=== PATIENT | female | born 1970 | race Caucasian/White ===

== ENCOUNTER 2016-10-31 22:59 | Emergency (ER) | payer OTHER ==
[~2016-10-31] VITALS: Ht 152.4 cm; Wt 67.0 kg
[2016-10-31 23:15] VITALS: BP 169/79; PULSE 105; RESP 18; TEMP 98.3; O2SAT 99
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
[2016-10-31] MEDS ORDERED: FLUO40CA PO (23:42)
[2016-10-31] MEDS ORDERED: LIDO1CRE31 TOPICAL (23:46)
[2016-10-31] MEDS ORDERED: ASPI81CH CHEW (23:47)
[2016-10-31] MEDS ORDERED: FLUO20CA12 PO (23:48)
[2016-10-31] MEDS ORDERED: CARV3.12 PO (23:49)
[2016-10-31] MEDS ORDERED: IBUP-232 (23:51)
[2016-10-31] MEDS ORDERED: LORA5SOL16 (23:51)
[2016-10-31] MEDS ORDERED: AMLO5TAB2 PO (23:55)
[2016-10-31] MEDS ORDERED: OMEP20TA PO (23:55)
[2016-10-31] MEDS ORDERED: LEVO112T2 PO (23:55)
[2016-10-31] MEDS ORDERED: CYCL5TAB PO (23:55)
[2016-10-31] MEDS ORDERED: PRAZ1CAP PO (23:55)
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
[2016-10-31] MEDS ORDERED: MULT-11 (23:58)
[2016-10-31] MEDS ORDERED: GUAISYP7 PO (23:58)
--- NOTE | 2016-10-31 23:58 | RADRPT ---
EXAM DATE/TIME: 10/31/2016 23:41 [facility] COMPARISON: No previous studies available for comparison. INDICATIONS : Left elbow pain. MEDICAL HISTORY : None. SURGICAL HISTORY : None. ENCOUNTER: Initial ACUITY: 1 day PAIN SCORE: 4/10 LOCATION: Left elbow. FINDINGS: Multiple view examination of the left elbow demonstrates no soft tissue swelling, joint effusion, or fracture. The osseous structures are in normal alignment. Bony mineralization is normal. CONCLUSION: Negative trauma study. Sage Carrera MD on October 31, 2016 at 23:56 Board Certified Radiologist. This report was verified electronically.
--- NOTE | 2016-10-31 23:58 | RADRPT ---
EXAM DATE/TIME: 10/31/2016 23:40 [facility] COMPARISON: No previous studies available for comparison. INDICATIONS : Left hand pain. MEDICAL HISTORY : None. SURGICAL HISTORY : None. ENCOUNTER: Initial ACUITY: 1 day PAIN SCORE: 6/10 LOCATION: Left hand. FINDINGS: Three view examination of the left hand demonstrates no acute fracture or malalignment. There is soft tissue swelling over the dorsum of the hand.. The carpal bones appear intact. The interphalangeal and metacarpophalangeal joints are intact. Bony mineralization is normal. CONCLUSION: Soft tissue swelling over the dorsum of the hand with no acute fracture or malalignme nt. Sage Carrera MD on October 31, 2016 at 23:55 Board Certified Radiologist. This report was verified electronically.
[2016-11-01 00:09] LABS: ANION GAP 9 MEQ/L (5-15); AST (GOT) 26 U/L (15-37); BICARBONATE 23.6 MEQ/L (21.0-32.0); BLOOD UREA NITROGEN 16 MG/DL (7-18); CHLORIDE 104 MEQ/L (98-107); GLOMERULAR FILTRATION RATE 67 ML/MIN (>89); POTASSIUM 3.7 MEQ/L (3.5-5.1); SODIUM (NA) 137 MEQ/L (136-145)
[2016-11-01 00:10] LABS: ALT (GPT) 53 U/L (10-53)
[2016-11-01 00:14] LABS: ALKALINE PHOSPHATASE 98 U/L (45-117); TOTAL BILIRUBIN ADULT 0.5 MG/DL (0.2-1.0)
[2016-11-01 01:40] LABS: BACTERIA, URINE RARE /hpf; BLOOD, URINE NEG (NEG); GLUCOSE,URINE NEG (NEG); HYALINE CAST, URINE 5 /lpf (RARE); KETONE, URINE NEG (NEG); MUCUS URINE FEW /lpf (OCC); NITRITE,URINE NEG (NEG); SQUAMOUS EPITHELIAL CELL URINE 2 /hpf (0-5); URINE COLOR YELLOW (YELLW/STRAW)
[2016-11-01 01:42] LABS: COMMENT (UR) CULTURE INDICATED; CULTURE IF INDICATED CULTURE INDICATED
[2016-11-01 01:46] LABS: AMPHETAMINE, URINE NEG (NEG); BARBITURATES, URINE NEG (NEG); COCAINE, URINE NEG (NEG)
[2016-11-01] MEDS ORDERED: SULFAMETHOXAZOLE-TRIMETHOPRIM DS 800-160 MG TAB PO ONE (02:30)
[2016-11-01] MEDS ORDERED: LORazepam 1 MG TAB PO ONE (02:45)
[2016-11-01 04:26] VITALS: BP 152/71; PULSE 97; RESP 18
[2016-11-01 06:25] LABS: AUTOMATED NEUTROPHIL # 5.5 TH/MM3 (1.8-7.7); BASOPHIL % 0.5 % (0.0-2.0); EOSINOPHIL % 0.5 % (0.0-4.0); HEMATOCRIT 35.7 % (35.0-46.0); HEMO FLAGS DIFF FINAL; LYMPH % 22.8 % (9.0-44.0); LYMPHOCYTE # 1.8 TH/MM3 (1.0-4.8); MEAN CELL VOLUME 82.3 FL (80.0-100.0); MEAN CORPUSCULAR HEMOGLOBIN 27.5 PG (27.0-34.0); MEAN CORPUSCULAR HGB CONC 33.4 % (32.0-36.0); MONO % 6.9 % (0.0-8.0); NEUT % 69.3 % (16.0-70.0); PLATELET COUNT 189 TH/MM3 (150-450); RED BLOOD COUNT 4.33 MIL/MM3 (4.00-5.30); RED CELL DISTRIBUTION WIDTH 14.3 % (11.6-17.2); WHITE BLOOD COUNT 7.9 TH/MM3 (4.0-11.0)
[2016-11-01 10:47] VITALS: BP 138/72; PULSE 88; RESP 14; O2SAT 99
[2016-11-01 15:14] VITALS: BP 175/84; PULSE 92; RESP 18; O2SAT 98
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
== END 2016-11-01 18:22 | disposition home or self-care (01) ==
LOC: NEPC 22:59 → NEPJ 11-01 18:22
DX: N30.00 Acute cystitis without hematuria (principal); B96.89 Other specified bacterial agents as the cause of diseases classified elsewhere; F43.25 Adjustment disorder with mixed disturbance of emotions and conduct; F43.10 Post-traumatic stress disorder, unspecified; M79.642 Pain in left hand; M25.522 Pain in left elbow
CPT/HCPCS: 70450; 73080; 73130; 80053; 80307; 81001; 85025; 87086; 99285